=== PATIENT | male | born 1965 | race Caucasian/White ===

== ENCOUNTER → 2018-02-27 | Outpatient (CLI) | payer BC ==
[2018-02-27 14:00] LABS: HEMOGLOBIN A1C 6.6 % (4.5-5.6)
[2018-02-27 14:25] LABS: BLOOD UREA NITROGEN 11 mg/dl (7-18); CARBON DIOXIDE 33 mmol/L (21-32); CREATININE 0.87 mg/dl (0.60-1.40); GLUCOSE 125 mg/dl (70-99); POTASSIUM 3.6 mmol/L (3.5-5.1); SODIUM 137 mmol/L (136-145)
== END | disposition home or self-care (01) ==
LOC: C.LABMFLN 09:48
PROVIDERS: ATTEND Family Medicine
DX: E11.9 Type 2 diabetes mellitus without complications (principal)